=== PATIENT | female | born 1990 | race Caucasian/White ===

== ENCOUNTER → 2024-11-08 08:27 | Outpatient (CLI) | payer OTHER, SELFPAY ==
[2024-11-08 15:23] LABS: Influenza A - CEPHEID Flu A NEGATIVE (NEGATIVE); Influenza B - CEPHEID Flu B NEGATIVE (NEGATIVE)
[2024-11-08 15:24] LABS: COVID-19 CEPHEID 4-PLEX PCR Negative (Negative)
== END ==
PROVIDERS: PCP Nurse Practitioner Family; Visit Provider Nurse Practitioner Family
DX: R05.9 Cough, unspecified (principal)
CPT/HCPCS: 87637